=== PATIENT | female | born 1940 | race Caucasian/White ===

== ENCOUNTER 2017-09-21 11:54 | Day surgery (SDC) | payer MEDICARE ==
[~2017-09-21 11:54] MED LIST: Acetaminophen TAB* 325 MG PO PRN; Buffered Lidocaine 0.9% SYRIN* 5 ML/SYR SYRINGE INTRADERM ONE; mitoMYcin 0.2 MG (0.02%) in Sterile Water for Inj* 1 ML OPHTHALMIC SCH
[2017-09-21] MEDS ORDERED: Lidocaine 2% PF* 10 ML AMP ONE ×2 (12:58→13:34)
[2017-09-21] MEDS ORDERED: Hyaluronidase OVINE* 200 UNIT/ML ML SUBCUT ONE ×2 (12:59→13:34)
[2017-09-21] MEDS ORDERED: Acetylcholine 1:100 OPTH* OPHTH.SOLN ONE (13:29)
[2017-09-21] MEDS ORDERED: Triamcinolone Acetonide* 40 MG/ML 1 ML VIAL ONE (13:29)
[2017-09-21] MEDS ORDERED: Lidocaine 2% EPI 1:200000 MPF* 20 ML VIAL ONE (13:30)
[2017-09-21] MEDS ORDERED: Neomycin/Polymy/Dex OPTH.SUSP* MAXITROL 0.1% 5 ML ONE (13:30)
[2017-09-21] MEDS ORDERED: Atropine 1% OPHTH.SOL* 2 ML BOT - 2 ML ONE (13:31)
[2017-09-21] MEDS ORDERED: Povidone Iodine 5% OPTH* 30 ML BTL ONE (13:31)
[2017-09-21] MEDS ORDERED: Sodium Bicarbonate 8.4% IV* 50 ML VIAL ONE (13:34)
[2017-09-21] MEDS ORDERED: Proparacaine 0.5% OPHTH.SOL* 15 ML BTL ONE (14:38)
[2017-09-21] MEDS ORDERED: Midazolam* 1 MG/ML 2 ML VIAL (2 MG) ONE ×2 (14:43→15:51)
[2017-09-21] MEDS ORDERED: Propofol* 10 MG/ML 20 ML BTL IV PUSH ONE (14:43)
[2017-09-21] MEDS ORDERED: Lidocaine 2% PF * 5 ML VIAL ONE (14:43)
[2017-09-21] MEDS ORDERED: fentaNYL* 50 MCG/ML 2 ML VIAL (100 MCG VIAL) ONE (14:47)
[2017-09-21] MEDS ORDERED: Acetaminophen TAB* 325 MG ONE (16:38)
[2017-09-21 17:30] VITALS: BP 113/66
--- NOTE | 2017-09-22 10:24 | OP ---
DATE OF OPERATION: 09/21/17 - [facility] DATE OF : 42 SURGEON: Bran Izaguirre MD. ANESTHESIA: Local with MAC. 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 OPERATIVE PROCEDURE: Removal Ahmed valve and debridement of scar tissue. COMPLICATIONS: None. DESCRIPTION OF PROCEDURE: The patient was given 4 cc of lidocaine with epinephrine and methacholine without difficulty. Right eye was prepped and draped in the usual sterile fashion and inspected, the lid speculum was placed. The foot plate of the Ahmed valve was found to be exposed with yellowish crusting and debris on the exposed areas. A 6-0 silk traction suture was placed through the superior cornea at the limbus and rotated inferiorly. Because of the state of the foot plates, it was best to remove the foot plates since it looked like it was covered in foreign material. 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 This was removed and then dissection was done to free the Ahmed valve main plate. There was a very large amount of scarring around and under the plate. The plate was removed successfully, a large amount of scar tissue was dissected free from the tenon's capsule. The eye was inspected and the intraocular pressure was found to be about 0. There was flow coming from the second Ahmed valve plate that was located superonasally after freeing up the scar tissue. It was decided best to not replace with a new valve since there was excessive scarring. The eye was very hypotonous and there was some flow from the other Ahmed valve. Some Mitomycin C 0.2 mg/mL was placed subtenons for 30 seconds and the conjunctiva closed using a running locking 10-0 nylon suture. The eye was patched thereafter. [id number]/[facility] #: [id number] UNITED HEALTH SERVICESEstela
== END 2017-09-21 17:23 | disposition home or self-care (01) ==
LOC: OREAST 11:54
PROVIDERS: ATTEND Specialist
DX: T85.398A Other mechanical complication of other ocular prosthetic devices, implants and grafts, initial encounter (principal); Y77.2 Prosthetic and other implants, materials and accessory ophthalmic devices associated with adverse incidents; H44.89 Other disorders of globe; H40.41 Glaucoma secondary to eye inflammation, right eye; H18.421 Band keratopathy, right eye; H16.4 Corneal neovascularization; H27.01 Aphakia, right eye; Q11.1 Other anophthalmos; Z88.0 Allergy status to penicillin; I10 Essential (primary) hypertension
CPT/HCPCS: A9270-GY; J2001; J2250; J2704; J3010; J3301; J3471; J9280

== ENCOUNTER 2019-05-20 16:10 | Emergency (ER) | payer MEDICARE ==
[2019-05-20 16:22] VITALS: BP 142/83
[2019-05-20] MEDS ORDERED: Tetan/Diph/Pertus SYR(Tdap)* 0.5 ML SYR(BOOSTRIX) use SYR IM ONE (16:29)
--- NOTE | 2019-05-20 16:30 | UC ---
Skin Complaint HPI - HPI Summary HPI Summary: Left on a nail- left foot. an hour ago - History of Current Complaint Chief Complaint: UCLowerExtremity Time Seen by Provider: 05/20/19 16:23 Stated Complaint: STEPPED ON A NAIL Hx Obtained From: Patient ?: No Onset/Duration: Sudden Onset Skin Exposure Onset/Duration: Hours Ago - 1 Onset Severity: Mild Current Severity: Mild Pain Intensity: 2 Character: Painful Aggravating Factor(s): Touch Alleviating Factor(s): Nothing Related History: Trauma - Allergy/Home Medications Allergies/Adverse Reactions: Allergies Allergy/AdvReac Type Severity Reaction Status Date / Time Penicillins Allergy Severe Itching Verified 05/20/19 16:22 Home Medications: Home Medications Amlodipine Besylate [Norvasc] 5 mg PO DAILY 05/20/19 [History Confirmed 05/20/19 ] Lisinopril TAB* [Prinivil TAB 10 MG*] 40 mg PO DAILY 05/20/19 [History Confirmed 05/20/19] PMH/Surg Hx/FS Hx/Imm Hx Previously Healthy: No Cardiovascular History: Hypertension - Surgical History Surgical History: Yes Surgery Procedure, Year, and Place: BILATERAL CATARACT EXTRACTION WITH IOL IMPLANTS- [facility]. 1964 SEVERAL LEFT EYE SURGERIES- [facility]. 1965 LEFT EYE ENUCLEATION- [facility]. [id number] MULTIPLE RIGHT EYE SURGIES, WITH SOME PHOTOCOAGULATIONS[place] [facility] [place] RIGHT EYE TRABECULECTOMY- [place]. 1993 VALVE PLACEMENT RIGHT EYE FOR GLAUCOMA- [place]. 2000 REMOVAL OF FLUID AROUND [place]ART[place] [facility] [place] 2007 TO PRESENT- AHMED VALVE RIGHT EYE, AND OTHER EYE SURGERIES WITH [place] [facility] [place] DUCTAL [place] (CANCER CELLS STAGE 0[place] [facility] [place]AR[place] [facility] [place] Family History Known Family History: Positive: Cardiac Disease - Social History Alcohol Use: Rare Substance Use Type: None Smoking Status (MU): Never Smoked Tobacco Have You Smoked in the Last Year: No - Immunization History Most Recent Influenza Vaccination: FALL 2014 Most Recent Tetanus Shot: [id number] YEARS AGO Most Recent Pneumonia Vaccination: RECEIVED; UNKNOWN Review of Systems All Other Systems Reviewed And Are Negative: Yes Skin: Positive: Other - puncture wound Is Patient Immunocompromised?: No Physical Exam Triage Information Reviewed: Yes Appearance: Well-Appearing, Well-Nourished, Pain Distress Vital Signs: Initial Vital Signs Temp 98.1 F 05/20/19 16:16 Pulse 76 05/20/19 16:16 Resp 12 05/20/19 16:16 BP 142/83 05/20/19 16:16 Pulse Ox 98 05/20/19 16:16 Eye Exam: Normal ENT Exam: Normal Dental Exam: Normal Neck exam: Normal Respiratory Exam: Normal Cardiovascular Exam: Normal Abdominal Exam: Normal Bowel Sounds: Positive: Present Musculoskeletal Exam: Normal Neurological Exam: Normal Psychological Exam: Normal Skin: Positive: Other - puncture wound to middle of left foot. Course/Dx - Course Course Of Treatment: hx obtained, exam performed, meds reviewed, tetanus given - Differential Diagnoses - Skin Complaint Differential Diagnoses: Other - puncture wound - Diagnoses Provider Diagnosis: Puncture wound Discharge - Sign-Out/Discharge Documenting (check all that apply): Patient Departure All imaging exams completed and their final reports reviewed: No Studies - Discharge Plan Condition: Stable Disposition: HOME Prescriptions: Cephalexin CAP* [Keflex CAP*] 500 mg PO BID #10 cap Patient Education Materials: Puncture Wound (ED) Referrals: Katherine Peña MD [Primary Care Provider] - Additional Instructions: 1. keep area clean, take the medication as prescribed. and soak foot daily till wound is healed. 2. Follow up with signs of infection here or with your doctor. - Billing Disposition and Condition Condition: STABLE Disposition: Home
== END 2019-05-20 17:21 | disposition home or self-care (01) ==
LOC: UCEAST 16:10
DX: S91.332A Puncture wound without foreign body, left foot, initial encounter (principal); W22.8XXA Striking against or struck by other objects, initial encounter; Y92.9 Unspecified place or not applicable; I10 Essential (primary) hypertension; Z88.0 Allergy status to penicillin
CPT/HCPCS: 90471; 90715; 99212; G0463

== ENCOUNTER 2024-02-20 16:55 | Observation (INO) ==
[2024-02-20] MEDS ORDERED: HYDROmorphone 0.5 MG/0.5 ML SYRINGE IV PRN (21:51)
[2024-02-21] MEDS: hydrALAZINE 20 mg/ml 1 ML Vial IV IV SLOW PU ONE (02:09)
[2024-02-21 02:24] LABS: Hematocrit 34.4 % (35-45); Hemoglobin 11.5 g/dL (11.5-14.3); Mean Corpuscular Hemoglobin 28.4 pg (27-33); Mean Corpuscular Hgb Conc 33.5 g/dL (31-36); Mean Corpuscular Volume 84.9 fL (80-97); Mean Platelet Volume 7.1 fL (7.5-11.2); Platelet Count 318 10^3/uL (150-450); Red Blood Count 4.05 10^6/uL (3.63-4.92); White Blood Count 8.7 10^3/uL (3.8-11.8)
[2024-02-21 02:43] LABS: Activated Partial Thrombo Time 33.9 seconds (26.0-38.0); INR 0.98 (0.83-1.13)
[2024-02-21 02:51] LABS: Calcium 8.7 mg/dL (8.6-10.3); Creatinine, Serum 0.7 mg/dL (0.51-0.95); Potassium 3.9 mmol/L (3.5-5.0); eGFR CKD-EPI 86.3 (>60)
[2024-02-21] MEDS: Potassium Chlor 10 meq TAB PO SCH (08:08)
[2024-02-21 08:18] LABS: Magnesium 1.8 mg/dL (1.9-2.7)
[2024-02-21] MEDS: Timolol 0.5% OPTH.SOL BTL RIGHT EYE SCH (08:55)
[2024-02-21 13:34] VITALS: BP 130/76
[2024-02-21] MEDS: Magnesium Sulfate 2 gm BAG 2 GM/50 ML BAG IVPB ONE (14:34)
== END 2024-02-21 17:30 | disposition home or self-care (01) ==
LOC: EDHOLD 16:55 → ED 16:55 → SUATTDRO 21:39 → MED 02-21 05:59
PROVIDERS: ADMIT Hospitalist; ATTEND Internal Medicine

== ENCOUNTER 2024-02-25 08:23 | Observation (INO) ==
[2024-02-25 09:27] LABS: ABS Basophils 0.1 10^3/uL (0.0-0.1); ABS Lymphocytes 0.3 10^3/uL (1.0-4.8); ABS Monocytes 0.7 10^3/uL (0.0-0.9); ABS Neutrophils 7.6 10^3/uL (1.5-7.6); ABS Nucleated RBC 0.01 10^3/ul; Eosinophil % 0.4 %; Hematocrit 39.5 % (35-45); Hemoglobin 13.3 g/dL (11.5-14.3); Lymphocyte % 3.8 %; Mean Corpuscular Hemoglobin 28.3 pg (27-33); Mean Corpuscular Hgb Conc 33.8 g/dL (31-36); Mean Corpuscular Volume 83.6 fL (80-97); Mean Platelet Volume 7.1 fL (7.5-11.2); Nucleated Red Blood Cells % 0.1 %/100WBC (0.0-0.8); Platelet Count 296 10^3/uL (150-450); Red Blood Count 4.72 10^6/uL (3.63-4.92); Red Cell Distribution Width 13.9 % (12-17); White Blood Count 8.7 10^3/uL (3.8-11.8)
[2024-02-25 10:03] LABS: Albumin 3.9 g/dL (3.2-5.2); Albumin/Globulin Ratio 1.9 (1-3); Calcium 8.4 mg/dL (8.6-10.3); Creatinine, Serum 0.53 mg/dL (0.51-0.95); Globulin 2.1 g/dL (2-4); Potassium 3.1 mmol/L (3.5-5.0); Total Bilirubin 0.7 mg/dL (0.2-1.0); eGFR CKD-EPI 92.3 (>60)
[2024-02-25] MEDS: NS 0.9% 1000 ml BAG 1,000 ML IV ONE (10:46)
[2024-02-25] MEDS: Potassium Chlor 20 meq TAB.ER PO ONE (10:47)
[2024-02-25] MEDS ORDERED: Senna TAB 8.6 mg TAB PO PRN (12:03)
[2024-02-25] MEDS ORDERED: Polyethylene Glycol 3350 17 GM PACKET PO PRN (12:03)
[2024-02-25] MEDS: Ondansetron 4 mg VIAL 2 MG/ML 2 ml VIAL IV ONE (12:14)
[2024-02-25 13:02] LABS: Magnesium 1.9 mg/dL (1.9-2.7)
[2024-02-25 13:17] LABS: TSH Ultra Thyroid Stim Horm 1.14 mcIU/mL (0.34-5.60)
[2024-02-25 14:51] LABS: Urine Osmo 407 mOsm/kg (150-1150)
[2024-02-25 14:51] LABS: Osmolality Serum 250 mOsm/kg (275-295)
[2024-02-25] MEDS ORDERED: Ondansetron 4 mg VIAL 2 MG/ML 2 ml VIAL IV PRN (16:00)
[2024-02-25 16:35] LABS: Calcium 8.4 mg/dL (8.6-10.3); Creatinine, Serum 0.48 mg/dL (0.51-0.95); Potassium 3.5 mmol/L (3.5-5.0); eGFR CKD-EPI 94.5 (>60)
[2024-02-25] MEDS: Lidocaine PATCH 4% TOPICAL SCH (17:18)
[2024-02-25] MEDS: Iohexol 300 (CONTRAST) 10 ML SDV IV ONE (22:07)
[2024-02-26 05:43] LABS: ABS Basophils 0.1 10^3/uL (0.0-0.1); ABS Eosinophils 0.1 10^3/uL (0.0-0.5); ABS Lymphocytes 0.6 10^3/uL (1.0-4.8); ABS Monocytes 0.8 10^3/uL (0.0-0.9); ABS Nucleated RBC 0.02 10^3/ul; Eosinophil % 1.7 %; Hematocrit 37.8 % (35-45); Hemoglobin 12.9 g/dL (11.5-14.3); Lymphocyte % 7.9 %; Mean Corpuscular Hemoglobin 28.5 pg (27-33); Mean Corpuscular Hgb Conc 34.1 g/dL (31-36); Mean Corpuscular Volume 83.5 fL (80-97); Nucleated Red Blood Cells % 0.3 %/100WBC (0.0-0.8); Platelet Count 325 10^3/uL (150-450); Red Blood Count 4.52 10^6/uL (3.63-4.92); Red Cell Distribution Width 13.8 % (12-17); White Blood Count 7.6 10^3/uL (3.8-11.8)
[2024-02-26 06:58] LABS: Calcium 8.8 mg/dL (8.6-10.3); Creatinine, Serum 0.55 mg/dL (0.51-0.95); Magnesium 2.1 mg/dL (1.9-2.7); Potassium 3.6 mmol/L (3.5-5.0); eGFR CKD-EPI 91.5 (>60)
[2024-02-26] MEDS ORDERED: Lidocaine PATCH 4% TOPICAL SCH (09:00)
[2024-02-26] MEDS: Potassium Chlor 20 meq TAB.ER PO ONE (09:21)
[2024-02-26 13:32] LABS: Creatinine, Serum 0.61 mg/dL (0.51-0.95); Potassium 3.9 mmol/L (3.5-5.0); eGFR CKD-EPI 89.2 (>60)
[2024-02-27 05:55] LABS: Hematocrit 38.3 % (35-45); Hemoglobin 13.1 g/dL (11.5-14.3); Mean Corpuscular Hemoglobin 28.5 pg (27-33); Mean Corpuscular Hgb Conc 34.2 g/dL (31-36); Mean Corpuscular Volume 83.4 fL (80-97); Mean Platelet Volume 7.3 fL (7.5-11.2); Platelet Count 349 10^3/uL (150-450); Red Blood Count 4.59 10^6/uL (3.63-4.92); Red Cell Distribution Width 14.3 % (12-17); White Blood Count 6.2 10^3/uL (3.8-11.8)
[2024-02-27 06:12] LABS: Calcium 9.1 mg/dL (8.6-10.3); Creatinine, Serum 0.66 mg/dL (0.51-0.95); Magnesium 2.2 mg/dL (1.9-2.7); eGFR CKD-EPI 87.5 (>60)
[2024-02-27 09:22] VITALS: BP 135/65
[2024-02-27] MEDS: Senna TAB 8.6 mg TAB PO SCH (13:29)
== END 2024-02-27 13:45 | disposition home health service (06) ==
LOC: ED 08:23 → EDHOLD 08:23 → MED 14:25
PROVIDERS: ADMIT Family Medicine; ATTEND Family Medicine

== ENCOUNTER 2024-07-10 13:20 | Inpatient (IN) ==
[~2024-07-10 13:20] MED LIST changes: -Acetaminophen TAB* 325 MG PO PRN; -Buffered Lidocaine 0.9% SYRIN* 5 ML/SYR SYRINGE INTRADERM ONE; +Naloxone 0.4 mg VIAL 0.4 mg/ml 1 ml VIAL IV PRN; -mitoMYcin 0.2 MG (0.02%) in Sterile Water for Inj* 1 ML OPHTHALMIC SCH
[2024-07-10] MEDS ORDERED: fentaNYL 100 mcg/2 ml 50 MCG/ML VIAL ONE ×2 (13:44→19:56)
[2024-07-10] MEDS ORDERED: Propofol 10 MG/ML 20 ML BTL ONE (13:44)
[2024-07-10] MEDS ORDERED: Midazolam 2 mg/2 ml VIAL 1 mg/ml 2 ml VIAL (2 mg) ONE (13:44)
[2024-07-10] MEDS ORDERED: Lidocaine 2% PF 5 ML VIAL ONE (13:44)
[2024-07-10] MEDS: Buffered Lidocaine 1% SYRIN 1 ml INTRADERM ONE (14:04)
[2024-07-10] MEDS ORDERED: Tranexamic Acid 1 GM/100ML BAG 2,000 MG/200 ML BAG IV ONE (14:07)
[2024-07-10] MEDS ORDERED: ceFAZolin 2 GM PREMIX 2 GM/50 ML BAG ONE (14:08)
[2024-07-10 14:10] LABS: Rapid COVID-19 Molecular Undetected (Undetected)
[2024-07-10] MEDS: Lactated Ringers 1000 ml BAG 1,000 ML IV SCH ×2 (14:33→21:30)
[2024-07-10] MEDS ORDERED: Bupivacaine 0.5% 50 ML MDV VIAL ONE (16:17)
[2024-07-10] MEDS ORDERED: Acetaminophen IV 1 GM/100ML 1,000 MG/100 ML BAG IV ONE (18:40)
[2024-07-10] MEDS ORDERED: Ondansetron ODT 4 mg TAB 4 MG TAB PO PRN (19:53)
[2024-07-10] MEDS ORDERED: Morphine 2 MG/ML SYRINGE IV PRN (19:53)
[2024-07-10] MEDS ORDERED: Lactulose 30 ml UDC PO PRN (19:53)
[2024-07-10] MEDS ORDERED: Magnesium Hydroxide LIQ 30 ML UDC PO PRN (19:53)
[2024-07-10] MEDS: fentaNYL 100 mcg/2 ml 50 MCG/ML VIAL IV PRN (19:58)
[2024-07-10] MEDS: Magnesium Hydroxide LIQ 30 ML UDC PO SCH (21:41)
[2024-07-11] MEDS: ceFAZolin 2 GM PREMIX 2 GM/50 ML BAG IV SCH (01:21)
[2024-07-11 07:14] LABS: Hematocrit 32.6 % (35-45); Hemoglobin 11.1 g/dL (11.5-14.3); Mean Platelet Volume 8.1 fL (7.5-11.2); Platelet Count 291 10^3/uL (150-450)
[2024-07-11 07:44] LABS: Calcium 8.6 mg/dL (8.6-10.3); Creatinine, Serum 0.58 mg/dL (0.51-0.95); Potassium 3.9 mmol/L (3.5-5.0); eGFR CKD-EPI 89.7 (>60)
[2024-07-11] MEDS: Vitamin THERAPEUTIC TAB PO SCH (08:41)
[2024-07-11] MEDS: Potassium Chlor 10 meq TAB PO SCH (08:42)
[2024-07-11] MEDS: Ondansetron 4 mg VIAL 2 MG/ML 2 ml VIAL IV PRN (09:59)
[2024-07-11] MEDS: NS 0.9% 1000 ml BAG 1,000 ML IV ONE (12:38)
[2024-07-12 06:53] LABS: Hematocrit 28.7 % (35-45); Hemoglobin 9.8 g/dL (11.5-14.3); Mean Platelet Volume 8.1 fL (7.5-11.2); Platelet Count 265 10^3/uL (150-450)
[2024-07-12 07:07] LABS: Calcium 8.1 mg/dL (8.6-10.3); Creatinine, Serum 0.57 mg/dL (0.51-0.95); Potassium 3.9 mmol/L (3.5-5.0); eGFR CKD-EPI 90.1 (>60)
[2024-07-12] MEDS: Calcium Carb (TUMS) 500 mg CHEW TAB PO PRN (20:18)
[2024-07-13 06:17] LABS: Hematocrit 27.3 % (35-45); Hemoglobin 9.2 g/dL (11.5-14.3); Platelet Count 264 10^3/uL (150-450)
[2024-07-13 06:31] LABS: Calcium 7.9 mg/dL (8.6-10.3); Creatinine, Serum 0.6 mg/dL (0.51-0.95); Potassium 4.3 mmol/L (3.5-5.0)
[2024-07-13 09:46] VITALS: BP 132/68
== END 2024-07-13 15:50 | disposition home or self-care (01) | DRG 470 ==
LOC: SSU 13:20 → OR 13:20 → OBSVTOIN 19:56
PROVIDERS: ADMIT Orthopaedic Surgery Adult Reconstructive Orthopaedic Surgery; ATTEND Orthopaedic Surgery Adult Reconstructive Orthopaedic Surgery